=== PATIENT | female | born 1995 | race African-American/Black ===

== ENCOUNTER 2016-08-06 10:27 | Emergency (ER) | payer OTHER ==
[2016-08-06 10:50] VITALS: BP 134/74; PULSE 81; TEMP 98; BMI 33.0
[2016-08-06 12:36] LABS: MCHC 33.7 g/dl (32.0-36.0); MEAN CELL VOLUME 92.1 fl (80-96); MEAN PLT VOLUME 8.7 fl (7.5-11.1); PLATELET COUNT 259 K/MM3 (134-434); RDW 12.3 % (11.6-15.6); WHITE BLOOD COUNT 5.8 K/mm3 (4.0-10.0)
[2016-08-06 12:56] LABS: CALCIUM 9.2 mg/dL (8.5-10.1); CREATININE 0.8 mg/dL (0.55-1.02)
[2016-08-06 13:25] LABS: URINE APPEARANCE SLCLOUDY; URINE BILIRUBIN NEGATIVE (NEGATIVE); URINE COLOR YELLOW; URINE GLUCOSE (UA) NEGATIVE (NEGATIVE); URINE KETONE NEGATIVE (NEGATIVE); URINE NITRITE NEGATIVE (NEGATIVE); URINE PROTEIN NEGATIVE (NEGATIVE); URINE UROBILINOGEN NEGATIVE E.U./dl (0.2-1.0)
[2016-08-06 13:36] LABS: URINE BLOOD 1+ (NEGATIVE); URINE LEUK ESTERASE 1+ (NEGATIVE)
--- NOTE | 2016-08-06 13:39 | PDOC ---
History of Present Illness - General Chief Complaint: Respiratory Stated Complaint: CONGESTED, Time Seen by Provider: 08/06/16 11:12 History Source: Patient Exam Limitations: No Limitations - History of Present Illness Initial Comments: 08/06/16 13:34 CC nasal congestion post exposure to raw sewerage at home; also diarrhea x 2 days Timing/Duration: reports: getting worse Severity: reports: mild Possible Cause: Yes: chronic episodes, irritant gases exposure Associated Symptoms: reports: sinus infection, sore throat. denies: dizziness, earache, fever/chills, headache, wheezing Past History - Past Medical History Allergies/Adverse Reactions: Allergies Allergy/AdvReac Type Severity Reaction Status Date / Time Penicillins Allergy Severe TONGUE Verified 08/06/16 10:48 SWELLING. Home Medications: Ambulatory Orders NK [No Known Home Medication] 08/06/16 Asthma: Yes - Immunization History Immunization Up to Date: Yes - Psycho/Social/Smoking Cessation Hx Anxiety: No Suicidal Ideation: No Smoking Status: No Smoking History: Never smoked Number of Cigarettes Smoked Daily: 0 Hx Alcohol Use: No Drug/Substance Use Hx: No Substance Use Type: None Review of Systems - Review of Systems Constitutional: Yes: Chills. No: Fever, Malaise HEENTM: Yes: Nose Pain, Nose Congestion, Throat Pain. No: Throat Swelling, Difficulty Swallowing Respiratory: No: Symptoms reported, Cough, Wheezing Cardiac (ROS): No: Symptoms Reported ABD/GI: Yes: Diarrhea (slight 3 episodes x 2 days) *Physical Exam - Vital Signs Last Vital Signs Temp Pulse Resp BP Pulse Ox 98 F 81 17 134/74 100 08/06/16 10:48 08/06/16 10:48 08/06/16 10:48 08/06/16 10:48 08/06/16 10:48 - Physical Exam General Appearance: Yes: Appropriately Dressed. No: Apparent Distress HEENT: positive: TMs Normal, Pharyngeal Erythema, Nasal Congestion, Rhinorrhea. negative: Sinus Tenderness, TM Bulging, TM Dull Neck: positive: Supple. negative: Tender, Rigid, Lymphadenopathy (R), Lymphadenopathy (L) Respiratory/Chest: positive: Lungs Clear. negative: Chest Tender Cardiovascular: positive: Regular Rhythm, Regular Rate. negative: Murmur ED Treatment Course - LABORATORY CBC & Chemistry Diagram: 08/06/16 12:25 08/06/16 12:25 - ADDITIONAL ORDERS Additional order review: Laboratory Results 08/06/16 08/06/16 13:00 12:25 Sodium 141 Potassium 3.9 Chloride 105 Carbon Dioxide 31 Anion Gap 5 L BUN 11 Creatinine 0.8 Random Glucose 93 Calcium 9.2 Urine HCG, Qual Negative 08/06/16 11:46 Group A Strep Rapid Antigen - Final Throat 08/06/16 12:25 RBC 3.91 MCV 92.1 MCHC 33.7 RDW 12.3 MPV 8.7 Medical Decision Making - Medical Decision Making 08/06/16 13:36 Labs done except Urine will call for abn result; will suggest follow LMD if diarrhea continues *DC/Admit/Observation/Transfer Diagnosis at time of Disposition: Diarrhea Qualifiers: Diarrhea type: unspecified type Qualified Code(s): R19.7 - Diarrhea, unspecified - Discharge Dispostion Disposition: HOME Condition at time of disposition: Stable Admit: No - Patient Instructions Additional Instructions: lots of fluids; see local MD if dirrhea more then 4 days
[2016-08-06 13:48] LABS: URINE BACTERIA RARE /hpf (NONE SEEN); URINE MUCUS RARE; URINE RBC 1 /hpf (0-3); URINE WBC 9 /hpf (3-5)
== END 2016-08-06 13:41 | disposition home or self-care (01) ==
LOC: JERFT 10:27
DX: R19.7 Diarrhea, unspecified (principal); T59.891A Toxic effect of other specified gases, fumes and vapors, accidental (unintentional), initial encounter; Y92.038 Other place in apartment as the place of occurrence of the external cause
CPT/HCPCS: 36415; 80048; 81003; 81015; 84703; 85027; 87070; 87430; 99281-25

== ENCOUNTER 2017-06-11 15:33 | Emergency (ER) | payer OTHER ==
[2017-06-11 15:40] VITALS: BP 146/51; PULSE 84; TEMP 97.6; BMI 30.1
--- NOTE | 2017-06-11 16:47 | PDOC ---
History of Present Illness - General Chief Complaint: Pain Stated Complaint: SWOLLEN/ PAIN FOOT Time Seen by Provider: 06/11/17 16:10 - History of Present Illness Initial Comments: 06/11/17 16:30 CHIEF COMPLAINT: LLE swelling HISTORY OF PRESENT ILLNESS: 22 yo F with hx of left foot swelling and multiple workups with no diagnosis presents to fast track with worsening swelling and pain. Patient states the pain started to get worse last month; mother reports that she noticed that the swelling was traveling up from the foot up to the knee today. Patient and mother deny any recent travel, oral contraceptives, or prolonged periods of sitting. Patient denies chest pain, shortness of breath, or palpitations. PAST MEDICAL HISTORY: Denies past medical history FAMILY HISTORY: Denies SOCIAL HISTORY: Denies tobacco, alcohol, illicit drug use. SURGICAL HISTORY: Denies ALLERGIES: PCN REVIEW OF SYSTEMS General/Constitutional: Denies fever or chills. Denies weakness. HEENT: Denies change in vision. Denies ear pain or discharge. Denies sore throat. Cardiovascular: Denies chest pain or shortness of breath. Respiratory: Denies cough, wheezing, or hemoptysis. Gastrointestinal: Denies nausea, vomiting, diarrhea or constipation. Denies rectal bleeding. Genitourinary: Denies dysuria, frequency, or change in urination. Musculoskeletal: Denies joint or muscle swelling or pain. Denies neck or back pain. Skin and breasts: Denies rash or easy bruising. Neurologic: Intermittent headache, worsened yesterday and reports near syncope yesterday. Denies vertigo, loss of consciousness, or loss of sensation. PHYSICAL EXAM General Appearance: Well-appearing, appropriately dressed. No apparent distress. HEENT: EOMI, PERRLA, normal ENT inspection, normal voice, TMs normal, pharynx normal. No conjunctival pallor. No photophobia, scleral icterus. Respiratory/Chest: Lungs CTAB. No shortness of breath, chest tenderness, respiratory distress, accessory muscle use. No crackles, rales, rhonchi, stridor , wheezing, dullness Cardiovascular: RRR. S1, S2. Vascular Pulses: Dorsalis-Pedis (R): 2+, Dorsalis-Pedis (L): 2+ Gastrointestinal/Abdominal: Normal bowel sounds. Abdomen soft, non-distended. No tenderness or rebound tenderness. No organomegaly, pulsatile mass, guarding , hernia, hepatomegaly, splenomegaly. Musculoskeletal/Extremities: Edema without erythema to left lower extremity extending from foot to inferior knee. +L calf tenderness on palpation. FROM of all extremities, normal capillary refill. Pelvis Stable. No CVA tenderness. Integumentary: Appropriate color, dry, warm. 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 Fully oriented, alert. Appropriate mood/affect. Motor strength 5/5. No appreciable EOM palsy, facial droop or sensory deficit. Past History - Past Medical History Allergies/Adverse Reactions: Allergies Allergy/AdvReac Type Severity Reaction Status Date / Time Penicillins Allergy Severe TONGUE Verified 06/11/17 15:40 SWELLING. Home Medications: Ambulatory Orders Diclofenac Sodium 75 mg PO BID #20 tablet. 06/11/17 Pantoprazole Sodium [Protonix] 40 mg PO DAILY #10 tablet. 06/11/17 Asthma: Yes COPD: No - Immunization History Immunization Up to Date: Yes - Suicide/Smoking/Psychosocial Hx Smoking Status: No Smoking History: Never smoked Number of Cigarettes Smoked Daily: 0 Hx Alcohol Use: No Drug/Substance Use Hx: No Substance Use Type: None *Physical Exam - Vital Signs Last Vital Signs Temp Pulse Resp BP Pulse Ox 97.6 F 84 18 146/51 100 06/11/17 15:37 06/11/17 15:37 06/11/17 15:37 06/11/17 15:37 06/11/17 15:37 ED Treatment Course - RADIOLOGY Radiology Studies Ordered: Category Date Time Status DUPLEX VASCUL US-1 LEG [US] Stat Ultrasound 06/11/17 16:29 Ordered Medical Decision Making - Medical Decision Making 06/11/17 16:47 22 yo F with hx of left foot swelling and multiple workups with no diagnosis presents to fast track with worsening swelling and pain. -ultrasound L leg r/o DVT ultrasound negative for dvt will rx nsaids for pain Advised patient and mother to f/u with specialists that have been doing her workup for further evaluation and of signs and symptoms for return to ER; patient and mother verbalized understanding and agree to plan. 06/11/17 17:20 *DC/Admit/Observation/Transfer Diagnosis at time of Disposition: Leg swelling - Discharge Dispostion Disposition: HOME Condition at time of disposition: Stable Admit: No - Prescriptions Prescriptions: Diclofenac Sodium 75 mg PO BID #20 tablet. Pantoprazole Sodium [Protonix] 40 mg PO DAILY #10 tablet.dr - Referrals Referrals: Daisha Porter MD [Primary Care Provider] - - Patient Instructions Printed Discharge Instructions: DI for Leg Pain Additional Instructions: Please take medications as prescribed. Follow up with your specialists for further evaluation of your worsening swelling. If you develop any palpitations , shortness of breath, chest pain, or any new or worsening symptoms, please return to the ER. - Post Discharge Activity
== END 2017-06-11 17:28 | disposition home or self-care (01) ==
LOC: JERFT 15:33
DX: R22.42 Localized swelling, mass and lump, left lower limb (principal); M79.605 Pain in left leg
CPT/HCPCS: 93971-TC; 99281-25

== ENCOUNTER 2019-12-17 11:52 | Emergency (ER) | payer OTHER ==
--- NOTE | 2019-12-17 11:59 | PDOC ---
Rapid Medical Evaluation Time Seen by Provider: 12/17/19 11:55 Medical Evaluation: Allergies Allergy/AdvReac Type Severity Reaction Status Date / Time Penicillins Allergy Severe TONGUE Verified 06/11/17 15:40 SWELLING. 12/17/19 11:55 CC: tripped and twisted left ankle yesterday. no radiation of pain, Exam: edgar tenderness malleolus tenderness, noted edema, ambulatory with limp Plan: xray ankle Discharge Disposition - Diagnosis Ankle pain, left - Referrals - Patient Instructions - Post Discharge Activity
[2019-12-17 12:00] VITALS: BP 139/76; PULSE 93; TEMP 98.6; BMI 30.1
[2019-12-17] MEDS ORDERED: IBUPROFEN 600 MG TABLET (FP) PO ONE ×2 (12:13→12:15)
--- NOTE | 2019-12-17 12:18 | PDOC ---
History of Present Illness - General Chief Complaint: Injury Stated Complaint: LT FOOT INJURY Time Seen by Provider: 12/17/19 11:55 History Source: Patient Exam Limitations: No Limitations Past History - Travel History Traveled outside of the country in the last 30 days: No Close contact w/someone who was outside of country & ill: No - Medical History Allergies/Adverse Reactions: Allergies Allergy/AdvReac Type Severity Reaction Status Date / Time Penicillins Allergy Severe TONGUE Verified 06/11/17 15:40 SWELLING. Home Medications: Ambulatory Orders Diclofenac Sodium 75 mg PO BID #20 tablet. 06/11/17 Pantoprazole Sodium [Protonix] 40 mg PO DAILY #10 tablet. 06/11/17 Ibuprofen 600 mg PO Q6H #30 tablet 12/17/19 Asthma: Yes COPD: No - Immunization History Immunization Up to Date: Yes - Psycho-Social/Smoking History Smoking Status: No Smoking History: Never smoked Number of Cigarettes Smoked Daily: 0 Information on smoking cessation initiated: No - Substance Abuse Hx (Audit-C & DAST Scrn) How often the patient has a drink containing alcohol: Never Score: In Men: 4 or > Positive; In Women: 3 or > Positive: 0 Screen Result (Pos requires Nsg. Audit-10AR): Negative In the last yr the pt used illegal drug/Rx for NonMed reason: No Score: Yes response is considered Positive: 0 Screen Result (Positive result requires Nsg. DAST-10): Negative Review of Systems - Review of Systems Able to Perform ROS?: Yes Comments:: 12/17/19 13:00 CONSTITUTIONAL: Absent: fever, chills, diaphoresis, generalized weakness, malaise, loss of appetite MUSCULOSKELETAL: Present: Left ankle pain, left foot pain absent: myalgia, arthralgia, joint swelling SKIN: Absent: rash, itching, pallor NEUROLOGIC: Absent: headache, focal weakness or paresthesias, dizziness, unsteady gait, seizure, mental status changes, bladder or bowel incontinence PSYCHIATRIC: Absent: anxiety, depression, suicidal or homicidal ideation, hallucinations. Is the patient limited Macedonian proficient: No *Physical Exam - Vital Signs Last Vital Signs Temp Pulse Resp BP Pulse Ox 98.6 F 93 H 16 139/76 100 12/17/19 11:57 12/17/19 11:57 12/17/19 11:57 12/17/19 11:57 12/17/19 11:57 - Physical Exam 12/17/19 13:00 GENERAL: The patient is awake, alert, and fully oriented, in no acute distress. HEAD: Normal with no signs of trauma. EYES: Pupils equal, round and reactive to light, extraocular movements intact, sclera anicteric, conjunctiva clear. EXTREMITIES: Swelling noted to the L ankle. TTP of the medial and lateral L malleoli, L metatarsal, and pain with dorsiflexion and DROM d/t pain. Normal range of motion at all other joints, no edema. Distal pulses 2+, regular and intact. NEUROLOGICAL: Normal speech, normal gait. PSYCH: Normal mood, normal affect. SKIN: Warm, Dry, normal turgor, no rashes or lesions noted. ED Treatment Course - RADIOLOGY Radiology Studies Ordered: Category Date Time Status FOOT-LEFT [RAD] Stat Radiology 12/17/19 12:13 Ordered - Medications Given in the ED: ED Medications Discontinued Medications Generic Name Dose Route Start Last Admin Trade Name Freq PRN Reason Stop Dose Admin Ibuprofen 600 mg 12/17/19 12:13 12/17/19 12:16 Motrin - PO 12/17/19 12:14 600 mg ONCE ONE Administration Medical Decision Making - Medical Decision Making 12/17/19 13:37 The patient is a 24 y/o F with PMH of asthma, presents to the ER with L ankle/foot pain for one day. She states she was walking down a flight of steps, when she missed the last step and twisted her L ankle/foot. She took Tylenol yesterday for the pain with minimal relief. Sh states that the pain was worse this morning with notable swelling, so she came to the ER for evaluation. Denies fevers, chills, LOC, head injury, numbness/tingling and weakness to the affected extremity. A/P: L ankle sprain On exam, pt with TTP of the lateral and medial malleoli b/l and pain at the L 5th metatarsal. (-) ovalle test/squeeze test. Distal pulses intact b/l X-rays reveal no fractures Likely and ankle sprain, serafin wrap, air cast applied. Motrin given with relief of symptoms D/C home with orthopedic follow up I discussed the physical exam findings, ancillary test results and final diagnoses with the patient. I answered all of the patient's questions. The p [place] was satisfied with the care received and felt comfortable with the discharge plan and treatment plan. The Patient agrees to follow up with the primary care physician/specialist within 24-72 hours. Return precautions were given. Discharge - Discharge Information Problems reviewed: Yes Clinical Impression/Diagnosis: Ankle sprain Qualifiers: Encounter type: initial encounter Involved ligament of ankle: unspecified ligament Laterality: left Qualified Code(s): S93.402A - Sprain of unspecified ligament of left ankle, initial encounter Condition: Stable Disposition: HOME - Admission No - Additional Discharge Information Prescriptions: Ibuprofen 600 mg PO Q6H #30 tablet - Follow up/Referral Referrals: Domenic Taylor MD [Staff Physician] - - Patient Discharge Instructions Patient Printed Discharge Instructions: DI for Ankle Sprain Additional Instructions: You sprained your ankle. Your x-ray was negative for broken bones. Please keep your ankle elevated while at rest above the level of your heart to reduce swelling. You may take Motrin 800 mg every 8 hours to help reduce pain and swelling. Please ice the area for 20 minute intervals at least 5 times a day to help redu ce swelling. Please wear the Serafin wrap. Please follow-up with orthopedics in 1 week if your symptoms are not improving. Return to the emergency department if you have worsening pain, or unable to [place], numbness and tingling of the foot, or had any changes in her symptoms. - Post Discharge Activity
== END 2019-12-17 13:33 | disposition home or self-care (01) ==
LOC: JERFT 11:52
DX: S93.402A Sprain of unspecified ligament of left ankle, initial encounter (principal); X50.9XXA Other and unspecified overexertion or strenuous movements or postures, initial encounter
CPT/HCPCS: 73610-TC-LT-FY; 73630-TC-LT; 99283-25

== ENCOUNTER 2019-12-30 14:00 | Emergency (ER) | payer OTHER ==
[2019-12-30 14:08] VITALS: BP 120/65; PULSE 96; TEMP 97.6; BMI 30.1
[2019-12-30] MEDS ORDERED: KETOROLAC TROMETHAMINE 60 MG/2 ML VIAL IM ONE (14:08)
--- NOTE | 2019-12-30 14:08 | PDOC ---
Rapid Medical Evaluation Chief Complaint: Injury Time Seen by Provider: 12/30/19 14:05 Medical Evaluation: Allergies Allergy/AdvReac Type Severity Reaction Status Date / Time Penicillins Allergy Severe TONGUE Verified 06/11/17 15:40 SWELLING. 12/30/19 14:06 Pt presents for re-evaluation of L foot pain. She states that the pain is now radiating up to her thigh. She has not been to orthopedics yet. Exam:Swelling to the L lateral malleolus Orders: toradol Pt to proceed to the ER for further evaluation Discharge Disposition - Diagnosis Ankle pain, left - Referrals - Patient Instructions - Post Discharge Activity
[2019-12-30] MEDS ORDERED: IBUPROFEN 600 MG TABLET (FP) PO ONE ×2 (14:16→14:18)
--- NOTE | 2019-12-30 14:23 | PDOC ---
History of Present Illness - General Chief Complaint: Injury Stated Complaint: L/FOOT INJURY Time Seen by Provider: 12/30/19 14:05 History Source: Patient, Old Records Exam Limitations: No Limitations - History of Present Illness Initial Comments: 12/30/19 14:17 HISTORY OF PRESENT ILLNESS: 24-year-old woman who presents for reevaluation of left ankle pain sustained after trip and fall 2 weeks ago. Patient attempted to follow-up with orthopedics but was told they do not take her insurance and has not been able to secure a follow-up appointment. No recent travel or sick contacts. PAST MEDICAL HISTORY: Denies past medical history SURGICAL HISTORY: Denies ALLERGIES: Penicillin REVIEW OF SYSTEMS General/Constitutional: Denies fever or chills. Denies weakness, weight change. HEENT: Denies change in vision. Denies ear pain or discharge. Denies sore throat. Cardiovascular: Denies chest pain or shortness of breath. Respiratory: Denies cough, wheezing, or hemoptysis. Gastrointestinal: Denies nausea, vomiting, diarrhea or constipation. Denies rectal bleeding. Genitourinary: Denies dysuria, frequency, or change in urination. Musculoskeletal: See HPI Skin and breasts: Denies rash or easy bruising. Neurologic: Denies headache, vertigo, loss of consciousness, or loss of sensation. Psychiatric: Denies depression or anxiety. Endocrine: Denies increased thirst. Denies abnormal weight change. Hematologic/Lymphatic: Denies anemia, easy bleeding, or history of blood clots. Allergic/Immunologic: Denies hives or skin allergy. Denies latex allergy. PHYSICAL EXAM General Appearance: Well-appearing, appropriately dressed. No apparent distress, no intoxication. Vascular Pulses: Dorsalis-Pedis (R): 2+, Dorsalis-Pedis (L): 2+ Musculoskeletal/Extremities: Normal inspection. FROM of all extremities, normal capillary refill. No tenderness to extremities, pedal edema, erythema or deformity. Minor swelling present to left ankle worse over the medial aspect. No erythema or ecchymosis present. Neurovascularly intact. Integumentary: Appropriate color, dry, warm. No cyanosis, erythema, jaundice or rash Past History - Medical History Allergies/Adverse Reactions: Allergies Allergy/AdvReac Type Severity Reaction Status Date / Time Penicillins Allergy Severe TONGUE Verified 06/11/17 15:40 SWELLING. Home Medications: Ambulatory Orders Diclofenac Sodium 75 mg PO BID #20 tablet. 06/11/17 Pantoprazole Sodium [Protonix] 40 mg PO DAILY #10 tablet. 06/11/17 Ibuprofen 600 mg PO Q6H #30 tablet 12/17/19 Asthma: Yes COPD: No - Immunization History Immunization Up to Date: Yes - Psycho-Social/Smoking History Smoking Status: No Smoking History: Never smoked Have you smoked in the past 12 months: No Number of Cigarettes Smoked Daily: 0 Information on smoking cessation initiated: No - Substance Abuse Hx (Audit-C & DAST Scrn) How often the patient has a drink containing alcohol: Never Score: In Men: 4 or > Positive; In Women: 3 or > Positive: 0 Screen Result (Pos requires Nsg. Audit-10AR): Negative *Physical Exam - Vital Signs Last Vital Signs Temp Pulse Resp BP Pulse Ox 97.6 F 96 H 16 120/65 99 12/30/19 14:05 12/30/19 14:05 12/30/19 14:05 12/30/19 14:05 12/30/19 14:05 Medical Decision Making - Medical Decision Making 12/30/19 14:21 A/P: 24-year-old woman with for reevaluation of left ankle pain Physical exam notable for minimal swelling to the medial aspect of the left ankle Patient has been ambulatory since initial injury Motrin 600 mg orally now Referral for orthopedics I discussed the physical exam findings, ancillary test results and final diagnoses with the patient. I answered all of the patient's questions. The patient was satisfied with the care received and felt comfortable with the discharge plan and treatment plan. The patient will call their primary care ph ysician within 24 hours to arrange follow-up and will return to the Emergency Department with any new, persistent or worsening symptoms. Portions of this note have been documented using voice recognition software. As a result, errors may occur in the equalizer operator process. Effort has been made to correct all grammatical and equalizer operator error, but some may have been missed which may produce sporadic inaccurate equalizer operator or nonsensical phrases. Discharge - Discharge Information Problems reviewed: Yes Clinical Impression/Diagnosis: Ankle pain, left Qualifiers: Chronicity: acute Qualified Code(s): M25.572 - Pain in left ankle and joints of left foot Condition: Stable Disposition: HOME - Admission No - Follow up/Referral Referrals: Manjit Stuart DO [Staff Physician] - - Patient Discharge Instructions Additional Instructions: [email or web address] You be given a referral for an orthopedist. Call to schedule appointment for reevaluation of your pain. Your emergency department visit is incomplete until you follow-up with your regular doctor. Take Tylenol 2-500 mg tablets every 6 hours as needed for pain. Take Motrin 3-200 mg tablets every 6 hours as needed for pain. These medications do not require a prescription as they are [id number]. Apply ice to your affected areas to help relieve pain. Do not leave ice on for more than 20 minutes at a time. Return to the emergency department for any new or worsening symptoms. Thank you very much for choosing us to provide your emergent health care needs. - Post Discharge Activity Work/Back to School Note: Back to Work
== END 2019-12-30 15:25 | disposition home or self-care (01) ==
LOC: JERFT 14:00
PROC: 3E0233Z Introduction of Anti-inflammatory into Muscle, Percutaneous Approach (ICD-10-PCS; principal; 2019-12-30)
DX: M25.572 Pain in left ankle and joints of left foot (principal)
CPT/HCPCS: 99284-25

== ENCOUNTER 2020-02-10 13:19 | Emergency (ER) | payer OTHER ==
--- NOTE | 2020-02-10 13:27 | PDOC ---
Rapid Medical Evaluation Time Seen by Provider: 02/10/20 13:26 Medical Evaluation: Allergies Allergy/AdvReac Type Severity Reaction Status Date / Time Penicillins Allergy Severe TONGUE Verified 02/10/20 13:26 SWELLING. 02/10/20 13:26 I have performed a brief in-person evaluation of this patient. CC: breast pain, vaginal bleeding and intermittent headaches. Not sure if . 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 PE: no focal findings. 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 02/10/20 13:27 Discharge Disposition - Diagnosis Breast tenderness in female - Referrals - Patient Instructions - Post Discharge Activity
[2020-02-10 13:30] VITALS: BP 159/63; PULSE 106; BMI 28.7
--- NOTE | 2020-02-10 14:32 | PDOC ---
History of Present Illness - General Chief Complaint: Pain, Acute Stated Complaint: ABD PAIN Time Seen by Provider: 02/10/20 13:26 - History of Present Illness Initial Comments: 02/10/20 14:30 24 y/o F w/ breast soreness and vaginal bleeding and elevated prolactin level as per her verify rep no PIERRE Past History - Medical History Allergies/Adverse Reactions: Allergies Allergy/AdvReac Type Severity Reaction Status Date / Time Penicillins Allergy Severe TONGUE Verified 02/10/20 13:26 SWELLING. Home Medications: Ambulatory Orders NK [No Known Home Medication] 02/10/20 Asthma: Yes COPD: No Other medical history: high prolactin level - Reproductive History Is Patient Now?: (unk) - Immunization History Immunization Up to Date: Yes - Psycho-Social/Smoking History Smoking Status: No Smoking History: Current some day smoker Have you smoked in the past 12 months: No Number of Cigarettes Smoked Daily: 0 Information on smoking cessation initiated: No - Substance Abuse Hx (Audit-C & DAST Scrn) How often the patient has a drink containing alcohol: Monthly or less Score: In Men: 4 or > Positive; In Women: 3 or > Positive: 1 Screen Result (Pos requires Nsg. Audit-10AR): Negative In the last yr the pt used illegal drug/Rx for NonMed reason: No Score: Yes response is considered Positive: 0 Screen Result (Positive result requires Nsg. DAST-10): Negative Review of Systems - Review of Systems Constitutional: No: Fever : Yes: See HPI *Physical Exam - Vital Signs Last Vital Signs Temp Pulse Resp BP Pulse Ox 106 H 20 159/63 100 02/10/20 13:27 02/10/20 13:27 02/10/20 13:27 02/10/20 13:27 - Physical Exam General Appearance: Yes: Nourished, Appropriately Dressed. No: Apparent Distress HEENT: positive: Normal ENT Inspection, Symmetrical Neck: positive: Supple. negative: Rigid Respiratory/Chest: negative: Respiratory Distress Musculoskeletal: positive: Normal Inspection Extremity: positive: Normal Inspection Integumentary: positive: Normal Color, Dry, Warm ED Treatment Course - LABORATORY CBC & Chemistry Diagram: 02/10/20 15:00 02/10/20 15:00 Medical Decision Making - Medical Decision Making 02/10/20 17:11 Hemolyzed chemistry was reordered 02/10/20 20:36 Eloped prior to completion of work-up Discharge - Discharge Information Problems reviewed: No Clinical Impression/Diagnosis: Breast tenderness in female Condition: Stable Disposition: ELOPED - Follow up/Referral - Patient Discharge Instructions - Post Discharge Activity
[2020-02-10 14:56] LABS: EPI CELLS >36 /uL (0-25.1); HYALINE CASTS 1 /uL (0-3.1); URINE APPEARANCE CLOUDY; URINE BACTERIA 1267 /uL (0-1359); URINE BILIRUBIN NEGATIVE (NEGATIVE); URINE COLOR YELLOW; URINE GLUCOSE (UA) NEGATIVE (NEGATIVE); URINE KETONE TRACE (NEGATIVE); URINE LEUK ESTERASE 1+ (NEGATIVE); URINE NITRITE NEGATIVE (NEGATIVE); URINE PROTEIN NEGATIVE (NEGATIVE); URINE RBC 5 /uL (0-23.9); URINE WBC 53 /uL (0-25.8)
[2020-02-10 15:15] LABS: HCG,QUALITATIVE URINE NEGATIVE
[2020-02-10 15:16] LABS: BASO % 0.8 % (0-2.0); EOS % 5.5 % (0-4.5); HEMATOCRIT 38.3 % (32.4-45.2); HEMOGLOBIN 12.9 GM/dL (10.7-15.3); LYMPH % 33.5 % (8-40); MCH 31.8 pg (25.7-33.7); MCHC 33.6 g/dl (32.0-36.0); MEAN CELL VOLUME 94.8 fl (80-96); MEAN PLT VOLUME 9.9 fl (7.5-11.1); MONO % 6.1 % (3.8-10.2); NEUT % 54.1 % (42.8-82.8); PLATELET COUNT 261 K/MM3 (134-434); RBC 4.04 M/mm3 (3.60-5.2); RDW 12.4 % (11.6-15.6); WHITE BLOOD COUNT 6.4 K/mm3 (4.0-10.0)
[2020-02-10 16:42] LABS: BLOOD UREA NITROGEN 14.2 mg/dL (7-18)
[2020-02-10 16:43] LABS: ALBUMIN 3.8 g/dl (3.4-5.0); BILIRUBIN,TOTAL 0.4 mg/dL (0.2-1); CALCIUM 8.9 mg/dL (8.5-10.1); TOT PROT 8.2 g/dl (6.4-8.2)
[2020-02-10 16:44] LABS: POTASSIUM 7.2 mmol/L (3.5-5.1)
== END 2020-02-10 19:20 | disposition left against medical advice (07) ==
LOC: JER 13:19
DX: N64.4 Mastodynia (principal)
CPT/HCPCS: 36415; 76830-TC; 80053; 81003; 84703; 85025; 87086; 99284-25